=== PATIENT | male | born 1960 | race Caucasian/White ===

== ENCOUNTER 2018-09-27 21:59 | Emergency (ER) | payer SELFPAY ==
[~2018-09-27] VITALS: Ht 170.2 cm; Wt 88.0 kg
[~2018-09-27 21:59] MED LIST: CIPR500T4 PO; IBUP-1542 PO; METR500T PO
[2018-09-27 22:07] VITALS: Ht 170.2 cm; Wt 88.0 kg
[2018-09-27] MEDS ORDERED: SOD CHLORIDE 0.9% 1,000 ML IV STA (22:21)
[2018-09-27] MEDS ORDERED: morphine 4 MG/ML VIAL IV STA (22:21)
--- NOTE | 2018-09-27 23:11 | ERD ---
ER Documentation Chief Complaint Chief Complaint LLQ abd pain all day, worse w/ urination, no BM since yesterday HPI 57-year-old male presenting with left lower quadrant abdominal pain that started at 3 AM this morning. The pain has been constant throughout the day but intermittently more severe. Pain is more severe with urination. However he denies any urethral burning with urination. He wanted to have a bowel movement today and felt the urge to but could not which is not usual for him. He denies any fevers, chills, nausea, vomiting. The pain radiating across the lower abdomen. No alleviating factors. ROS All systems reviewed and are negative except as per history of present illness. Medications Home Meds Active Scripts Ibuprofen* (Motrin*) 600 Mg Tab, 600 MG PO Q6H PRN for PAIN AND OR ELEVATED TEMP, #30 TAB Prov:PAVEL SCHMIDT MD 09/27/18 Metronidazole* (Flagyl*) 500 Mg Tablet, 500 MG PO TID for 10 Days, TAB Prov:PAVEL SCHMIDT MD 09/27/18 Ciprofloxacin Hcl* (Ciprofloxacin Hcl*) 500 Mg Tablet, 500 MG PO BID for 10 Days, TAB Prov:PAVEL SCHMIDT MD 09/27/18 Allergies Allergies: Coded Allergies: No Known Allergy (Unverified , 09/27/18) PMhx/Soc Medical and Surgical Hx: pt denies Medical Hx, pt denies Surgical Hx Hx Alcohol Use: No Hx Substance Use: No Hx Tobacco Use: No Smoking Status: Never smoker FmHx Family History: No diabetes Physical Exam Vitals Vital Signs Date Temp Pulse Resp B/P (MAP) Pulse Ox O2 O2 Flow FiO2 Time Delivery Rate 09/27/18 82 16 154/85 100 Room Air 23:26 (108) 09/27/18 99.5 92 20 162/92 96 22:07 (115) Physical Exam Const: No acute distress Head: Atraumatic Eyes: Normal Conjunctiva ENT: Normal External Ears, Nose and Mouth. Neck: Full range of motion. No meningismus. Resp: Clear to auscultation bilaterally Cardio: Regular rate and rhythm, no murmurs Abd: Soft, left lower quadrant and suprapubic tenderness to palpation with no rebound or guarding. Non distended. Normal bowel sounds Skin: No petechiae or rashes Back: No midline or flank tenderness Ext: No cyanosis, or edema Neur: Awake and alert Psych: Normal Mood and Affect Result Diagram: 09/27/18223409/27/182234 Results 24 hrs Laboratory Tests Test 09/27/18 22:35 09/27/18 22:48 White Blood Count 10.9 10^3/ul Red Blood Count 4.99 10^6/ul Hemoglobin 13.0 g/dl Hematocrit 39.5 % Mean Corpuscular Volume 79.2 fl Mean Corpuscular Hemoglobin 26.1 pg Mean Corpuscular Hemoglobin Concent 32.9 g/dl Red Cell Distribution Width 13.2 % Platelet Count 291 10^3/UL Mean Platelet Volume 9.8 fl Immature Granulocytes % 0.300 % Neutrophils % 75.7 % Lymphocytes % 14.4 % Monocytes % 8.6 % Eosinophils % 0.5 % Basophils % 0.5 % Nucleated Red Blood Cells % 0.0 /100WBC Immature Granulocytes # 0.030 10^3/ul Neutrophils # 8.2 10^3/ul Lymphocytes # 1.6 10^3/ul Monocytes # 0.9 10^3/ul Eosinophils # 0.1 10^3/ul Basophils # 0.1 10^3/ul Nucleated Red Blood Cells # 0.0 10^3/ul Urine Color YELLOW Urine Clarity SLIGHTLY CLOUDY Urine pH 8.0 Urine Specific Bells 1.003 Urine Ketones NEGATIVE mg/dL Urine Nitrite NEGATIVE mg/dL Urine Bilirubin NEGATIVE mg/dL Urine Urobilinogen NEGATIVE mg/dL Urine Leukocyte Esterase NEGATIVE Brenna/ul Urine Microscopic RBC 0 /HPF Urine Microscopic WBC 0 /HPF Urine Bacteria FEW /HPF Urine Hemoglobin NEGATIVE mg/dL Urine Glucose NEGATIVE mg/dL Urine Total Protein NEGATIVE mg/dl Sodium Level 138 mmol/L Potassium Level 4.1 mmol/L Chloride Level 102 mmol/L Carbon Dioxide Level 25 mmol/L Anion Gap 11 Blood Urea Nitrogen 10 mg/dl Creatinine 0.84 mg/dl Est Glomerular Filtrat Rate mL/min > 60 mL/min Glucose Level 108 mg/dl Calcium Level 9.8 mg/dl Bedside Urine pH (LAB) 7.0 Bedside Urine Protein (LAB) Negative Bedside Urine Glucose (UA) Negative Bedside Urine Ketones (LAB) Negative Bedside Urine Blood Negative Bedside Urine Nitrite (LAB) Negative Bedside Urine Leukocyte Esterase (L Negative Current Medications Medications Dose Sig/Tico Start Time Status Last (Trade) Ordered Route PRN Stop Time Admin Dose Reason Admin Sodium 1,000 ml @ Q1H STAT 09/27/18 DC 09/27/18 Chloride 1,000 mls/hr IV 22:21 09/27/18 22:34 23:20 Morphine 4 mg ONCE STAT 09/27/18 DC 09/27/18 Sulfate IV 22:21 09/27/18 22:34 (morphine) 22:23 500 mg ONCE ONCE 09/27/18 DC 09/27/18 Metronidazole PO 23:30 09/27/18 23:20 (Flagyl) 23:31 500 mg ONCE ONCE 09/27/18 DC 09/27/18 Ciprofloxacin PO 23:30 09/27/18 23:20 (Cipro) 23:31 Ketorolac 30 mg ONCE STAT 09/27/18 DC 09/27/18 Tromethamine IV 23:16 09/27/18 23:20 (Toradol) 23:18 Procedures/MDM EMERGENT LABS AND DIAGNOSTIC STUDIES: Lab Results above were reviewed and interpreted by me. CBC: no anemia or evidence of infection BMP: No e/o clinically significant electrolyte abnormality severe acidosis, alkalosis, renal failure, diabetic ketoacidosis UA: no evidence of infection Radiology Results as interpreted by Radiology below were reviewed by Terry Schmidt MD: CT abdomen and pelvis shows evidence of sigmoid diverticulitis without complic ation Initial Nursing notes reviewed. Previous Medical Records requested via the Electronic Health Record. EMERGENCY DEPARTMENT COURSE / MEDICAL DECISION MAKING: Differential includes but is not limited to appendicitis, colitis, cystitis, ureterolithiasis, diverticulitis,bowel obstruction, fecal impaction. Doubt perforated viscus or ischemic bowel. Doubt aortic dissection. Bloodwork, UA ordered to evaluate for above. CT shows evidence of uncomplicated diverticulitis. Patient given pain medications here with improvement. He was also given 1 dose of Flagyl and Cipro orally prior to discharge. No evidence of sepsis at this time. No evidence of surgical abdomen. Discussed results and plan of discharge with patient. 10-day course of Cipro and Flagyl given. Importance of colonoscopy after treatment of infection di scussed with patient. He does plan on following up as discussed. Return precautions given. Patient discharged in stable condition. Patient's blood pressure was elevated (>120/80) but appears stable without evidence of hypertension emergency or urgency. The patient was counseled about the risks of hypertension and urged to pursue outpatient monitoring and therapy within a week with their primary care physician. Patient's blood pressure was elevated (>120/80) but appears stable without evidence of hypertensive emergency or urgency. The patient was counseled about the risks of hypertension and urged to pursue outpatient monitoring and therapy within a week with their primary care physician. Departure Diagnosis: Primary Impression: Diverticulitis Condition: Stable Patient Instructions: Diverticulitis Referrals: [facility] Usted se delgadillo hecho un examen mdico de control que le indica que no est en rohan condicin que requiera tratamiento urgente en el Departamento de Emergencia. Un estudio ms profundo y el tratamiento de coleman condicin pueden esperar sin ningn riesgo hasta que usted sea atendida/o en el consultorio de coleman mdico o rohan clnica. Es responsabilidad suya arreglar rohan prerna para el seguimiento del geno. MANEJO DE CONDICIONES NO URGENTES EN EL FUTURO 1) Si usted tiene un mdico de atencin primaria: Usted debera llamar a coleman mdico de atencin primaria antes de venir al departamento de emergencia. Despus de las horas de consultorio, coleman doctor o coleman asociado/a est disponible por telfono. El mdico o enfermero de [place] en el servicio telefnico puede asesorarle por willi medio para atender el problema, o geno contrario se puede programar rohan prerna. 2) Si usted no tiene un mdico de atencin primaria: Llame al mdico o clnica de referencia que aparece abajo indra las horas de consultorio para hacer rohan prerna para que le vean. CLINICAS: [facility] [phone] [facility] [phone] [facility] [phone] [place] [id number] [phone] [place] [address] [phone] [facility] [phone] [address] Additional Instructions: After your infection improves, it is very important you go to your doctor and get a referral for a colonoscopy. Return to the ER if you are not improving with the antibiotics and your symptoms are getting worse. PAVEL SCHMIDT MD Sep 27, 2018 23:11
[2018-09-27] MEDS ORDERED: KETOROLAC 30 MG INJ IV STA (23:16)
[2018-09-27] MEDS ORDERED: CIPROFLOXACIN 500 MG TAB PO ONE (23:30)
[2018-09-27] MEDS ORDERED: metroNIDAZOLE 500 MG TAB PO ONE (23:30)
[2018-09-27 23:48] VITALS: BP 154/85; PULSE 83; RESP 16
== END 2018-09-27 23:49 | disposition home or self-care (01) ==
LOC: E/R 21:59
DX: K57.32 Diverticulitis of large intestine without perforation or abscess without bleeding (principal)
CPT/HCPCS: 36415; 74176; 80048; 81001; 85025; 96374; 96375; 99285; J1885; J2270; J7030; 81003

== ENCOUNTER 2018-10-06 00:44 | Emergency (ER) | payer SELFPAY ==
[~2018-10-06] VITALS: Ht 170.2 cm; Wt 85.8 kg
[2018-10-06 01:04] VITALS: Ht 170.2 cm; Wt 85.8 kg
--- NOTE | 2018-10-06 01:26 | ERD ---
ER Documentation Chief Complaint Chief Complaint delgadillo HPI The patient is a 57-year-old male, presenting to the ER because of headache, elevated blood pressure after he had an argument with friends. He took his blood pressure which was high at 208/106 at 12:30 AM, he then took his friend medication Micardis 80 mg before coming to the hospital. He felt better now, he was well prior to that document, denies syncope, near syncope, neck pain, chest pain, dyspnea, abdominal pain, vomiting, dysuria, diarrhea. He does not smoke nor drink, has a lot of stress Past medical/surgical history: None ROS All systems reviewed and are negative except as per history of present illness. Medications Home Meds Active Scripts Ibuprofen* (Motrin*) 600 Mg Tab, 600 MG PO Q6H PRN for PAIN AND OR ELEVATED TEMP, #30 TAB Prov:PAVEL SCHMIDT MD 09/27/18 Metronidazole* (Flagyl*) 500 Mg Tablet, 500 MG PO TID for 10 Days, TAB Prov:PAVEL SCHMIDT MD 09/27/18 Ciprofloxacin Hcl* (Ciprofloxacin Hcl*) 500 Mg Tablet, 500 MG PO BID for 10 Days, TAB Prov:PAVEL SCHMIDT MD 09/27/18 Allergies Allergies: Coded Allergies: No Known Allergy (Unverified , 09/27/18) PMhx/Soc Hx Alcohol Use: No Hx Substance Use: No Hx Tobacco Use: No Physical Exam Vitals Vital Signs Date Temp Pulse Resp B/P (MAP) Pulse Ox O2 O2 Flow FiO2 Time Delivery Rate 10/06/18 74 17 148/91 97 Room Air 04:53 (110) 10/06/18 66 16 152/87 100 Room Air 03:44 (108) 10/06/18 63 13 153/84 100 Room Air 02:55 (107) 10/06/18 73 14 202/100 100 Room Air 01:30 (134) 10/06/18 97.8 69 20 225/101 99 01:04 (142) Physical Exam Const: No acute distress. Head: Atraumatic. Eyes: Normal Conjunctiva. ENT: Normal External Ears, Nose and Mouth. Neck: Full range of motion. No meningismus. Resp: Clear to auscultation bilaterally. Cardio: Regular rate and rhythm. Abd: Soft, non distended, normal bowel sounds, non tender. Skin: No petechiae or rashes. Back: No midline or flank tenderness. Ext: No cyanosis, or edema. Neur: Awake and alert. No focal deficit Psych: Anxious Result Diagram: 10/06/18 0124 10/06/18 0124 Results 24 hrs Laboratory Tests Test 10/06/18 01:24 White Blood Count 5.8 10^3/ul Red Blood Count 5.49 10^6/ul Hemoglobin 14.2 g/dl Hematocrit 43.5 % Mean Corpuscular Volume 79.2 fl Mean Corpuscular Hemoglobin 25.9 pg Mean Corpuscular Hemoglobin Concent 32.6 g/dl Red Cell Distribution Width 13.0 % Platelet Count 365 10^3/UL Mean Platelet Volume 9.3 fl Immature Granulocytes % 0.200 % Neutrophils % 52.5 % Lymphocytes % 33.0 % Monocytes % 10.7 % Eosinophils % 2.4 % Basophils % 1.2 % Nucleated Red Blood Cells % 0.0 /100WBC Immature Granulocytes # 0.010 10^3/ul Neutrophils # 3.0 10^3/ul Lymphocytes # 1.9 10^3/ul Monocytes # 0.6 10^3/ul Eosinophils # 0.1 10^3/ul Basophils # 0.1 10^3/ul Nucleated Red Blood Cells # 0.0 10^3/ul Sodium Level 140 mmol/L Potassium Level 4.0 mmol/L Chloride Level 102 mmol/L Carbon Dioxide Level 26 mmol/L Anion Gap 12 Blood Urea Nitrogen 9 mg/dl Creatinine 0.81 mg/dl Est Glomerular Filtrat Rate mL/min > 60 mL/min Glucose Level 107 mg/dl Calcium Level 10.4 mg/dl Troponin I < 0.012 ng/ml Procedures/[place] [address] Radiology Main Line: [phone] DIAGNOSTIC IMAGING REPORT Patient: MYNOR HARPER : 1960 Age: 57 Sex: M MR #: [id number] DOS: 10/06/18 0141 Ordering MD: MARTÍNEZ GRAHAM MD Location: E/R Room/Bed: PROCEDURE: CT BRAIN WITHOUT CONTRAST CLINICAL INDICATION: 57-year-old male with headaches and hypertension. TECHNIQUE: The study was performed utilizing [employer] VCT 64-slice CT scanner. Direct axial sections were obtained from the foramen magnum to the vertex without the use of intravenous contrast material. Sagittal and coronal reformations were obtained. One or more of the following dose reduction techniques were utilized: automated exposure control, adjustment of the mA and/or kV according to patient's size or use of iterative reconstruction technique. DICOM images are available. The images were viewed on a PACS workstation. CTD/vol = 38.46 mGy; Total Exam DLP = 634.23 mGy.cm. COMPARISON: None. FINDINGS: The ventricles have a normal size, shape and position. There is no evidence for mass effect or midline shift. There are no intracranial areas of abnormal attenuation. There is no evidence for acute intra or extra-axial blood. The bony calvarium is intact. The partially visualized paranasal sinuses and mastoid air cells are without significant abnormal soft tissue. IMPRESSION: Unremarkable noncontrast CT scan of the brain. .Zac Ochoa MD, MD Date Time Electronically viewed and signed by .Zac Ochoa MD, MD on 10/06/2018 03:04 .M/ CC: MARTÍNEZ GRAHAM MD [phone] [place] [address] Radiology Main Line: [phone] DIAGNOSTIC IMAGING REPORT Patient: MYNOR HARPER : 1960 Age: 57 Sex: M MR #: [id number] DOS: 10/06/18 0141 Ordering MD: MARTÍNEZ GRAHAM MD Location: E/R Room/Bed: PROCEDURE: CHEST - 1 VIEW CLINICAL INDICATION: 57-year-old male with chest pain. TECHNIQUE: A single frontal AP portable view of the chest was performed. The images were reviewed on a PACS workstation. COMPARISON: None. FINDINGS: The cardiomediastinal silhouette has a normal appearance. There is a shallow inspiration. There is minimal bibasilar subsegmental atelectasis. There is no evidence for focal consolidation. There is no evidence for congestive heart failure. There is no evidence for pneumothorax. The osseous structures are intact. IMPRESSION: Shallow inspiration with minimal bibasilar subsegmental atelectasis. .Zac Ochoa MD, Date Time Electronically viewed and signed by .Zac Ochoa MD, on 10/06/2018 02:22 .M/ CC: MARTÍNEZ GRAHAM MD [phone] EKG: At 1:10 AM read by emergency physician Rate/Rhythm: Normal Sinus Rhythm 69 beats/min QRS, ST, T-waves: No ST elevation, no T inversion Impression: Normal EKG EKG: At 1:56 AM read by emergency physician Rate/Rhythm: Normal Sinus Rhythm 64 beats/min QRS, ST, T-waves: No ST elevation, no T inversion Impression: Normal EKG MEDICAL MAKING DECISION: The patient is a 57-year-old male, presenting to the ER because of headache, elevated blood pressure most likely due to acute stress. His blood pressure is improving, currently 136/84, he fell well and denies any symptoms, is stable for outpatient follow-up The differential diagnoses considered include but are not limited to subarachnoid hemorrhage, occult trauma, CVA, meningitis, encephalitis, hypertension, tension, migraine, cluster, narcotic withdrawal, cervical spine disease. Departure Diagnosis: Primary Impression: Headache Additional Impression: Elevated blood pressure reading Condition: Good Comments The patient's blood pressure was elevated (>120/80) but appears stable without evidence of hypertension emergency or urgency. The patient was counseled about the risks of hypertension and urged to pursue outpatient monitoring and therapy within a week with their primary care physician. I discussed the findings with the patient. I advised the patient to follow-up with the primary physician in about 1-2 days, sooner if needed and return if any concern. Disclaimer: Inadvertent spelling and grammatical errors are likely due to EHR/dictation software use and do not reflect on the overall quality of patient care. Also, please note that the electronic time recorded on this note does not necessarily reflect the actual time of the patient encounter. MARTÍNEZ GRAHAM MD Oct 06, 2018 01:26
[2018-10-06 05:25] VITALS: BP 136/84; PULSE 70; RESP 17
== END 2018-10-06 05:25 | disposition home or self-care (01) ==
LOC: E/R 00:44
DX: R51 Headache (principal); R03.0 Elevated blood-pressure reading, without diagnosis of hypertension; R07.9 Chest pain, unspecified
CPT/HCPCS: 36415; 70450; 71045; 80048; 84484; 85025; 93005